=== PATIENT | female | born 1950 | race Caucasian/White ===

== ENCOUNTER 2017-06-02 19:47 | Emergency (ER) | payer MEDICARE, OTHER ==
[~2017-06-02] VITALS: Ht 157.5 cm; Wt 74.4 kg
[2017-06-02 19:49] VITALS: BP 148/89
--- NOTE | 2017-06-02 19:58 | NUR ---
TO ER BED 5
--- NOTE | 2017-06-02 20:00 | NUR ---
67 Y/O F BIB FAMILY W/C/O R KNEE PAIN S/P FALLING AND LANDING ON R KNEE. AFFECTED KNEE APPEARS SWOLLEN, AND RED. EXTREMITY PINK, CAP REFILL LESS THAN 2 NO S/S OF IMPAIRED CIRCULATION NOTED.
--- NOTE | 2017-06-02 20:01 | NUR ---
PER PT SHE TOOK 1000MG OF NAPROSYN FOR PAIN 45 MIN AGO. ER MADE AWARE.
--- NOTE | 2017-06-02 20:12 | NUR ---
XRAY AT BEDSIDE.
[2017-06-02] MEDS ORDERED: oxyCODONE/APAP 5/325 MG 1 TAB TAB PO ONE (21:10)
[2017-06-02 22:05] VITALS: BP 133/89
--- NOTE | 2017-06-02 22:05 | NUR ---
Patient discharged with v/s stable. Written and verbal after care instructions given and explained. Patient alert, oriented and verbalized understanding of instructions. Wheel Chair Assisted with by caregiver. All questions addressed prior to discharge. ID band removed. Patient advised to follow up with PMD OR RETURN TO ER IF CONDITION WORSENS. Rx of IBUPROFEN given. Patient educated on indication of medication including possible reaction and side effects. Opportunity to ask questions provided and answered.
== END 2017-06-02 22:05 | disposition home or self-care (01) ==
LOC: MED 19:47
DX: S83.91XA Sprain of unspecified site of right knee, initial encounter (principal); J45.909 Unspecified asthma, uncomplicated; W18.39XA Other fall on same level, initial encounter; Y93.89 Activity, other specified; Y92.89 Other specified places as the place of occurrence of the external cause; Y99.8 Other external cause status
CPT/HCPCS: 29505; 73562; 99284; Q0092

== ENCOUNTER 2018-05-08 13:06 | Emergency (ER) | payer MEDICARE, OTHER ==
[~2018-05-08] VITALS: Ht 157.5 cm; Wt 75.1 kg
[2018-05-08 13:20] VITALS: BP 112/71
--- NOTE | 2018-05-08 13:38 | NUR ---
68 YO F BIB DTR W/ C/O LEFT WRIST PAIN S/P FALL THAT OCCURED THIS MORNING. PT DENIES LOC, OR TRAUMA TO ANY OTHER PART OF BODY/HEAD. PT REPORTS SHE TRIPPED AND PUT HER HANDS OUT IN FRONT OF HER. PT REPORTS PAIN 5/10 THAT IS ACHING. AAOX4. GCS 15. CMS INTACT. RR EVEN AND UNLABORED. LUNGS BILATERALLY CLEAR. ABD SOFT, NON-TENDER. ER MD CHACON NOTIFIED. PT NEEDS MET. SAFETY PRECAUTIONS IN PLACE. WILL CONTINUE TO MONITOR.
[2018-05-08] MEDS ORDERED: KETOROLAC 60 MG/2 ML VIAL IM ONE (14:15)
[2018-05-08 15:22] VITALS: BP 133/80
--- NOTE | 2018-05-08 15:23 | NUR ---
Patient discharged with v/s stable. Written and verbal after care instructions given and explained. Patient alert, oriented and verbalized understanding of instructions. Ambulatory with steady gait. All questions addressed prior to discharge. ID band removed. Patient advised to follow up with PMD. Rx of NAPROXYN given. Patient educated on indication of medication including possible reaction and side effects. Opportunity to ask questions provided and answered.
== END 2018-05-08 15:23 | disposition home or self-care (01) ==
LOC: MED 13:06
DX: S52.502A Unspecified fracture of the lower end of left radius, initial encounter for closed fracture (principal); M19.90 Unspecified osteoarthritis, unspecified site; J45.909 Unspecified asthma, uncomplicated; E78.5 Hyperlipidemia, unspecified; W01.198A Fall on same level from slipping, tripping and stumbling with subsequent striking against other object, initial encounter; Y93.89 Activity, other specified; Y99.8 Other external cause status; Y92.89 Other specified places as the place of occurrence of the external cause
CPT/HCPCS: 29125; 73110; 96372; 99284; J1885; Q0092